=== PATIENT | female | born 1950 | race Two or more races ===

== ENCOUNTER 2020-09-17 08:28 | Day surgery (SDC) | payer OTHER ==
[~2020-09-17 08:28] MED LIST: ATACAND HCT 321 EACH PO; CARDURA1 MG PO; CLONAZEPAM0.5 MG PO; METFORMIN HCL500 M3 PO; ZOLOFT25 MG PO
[2020-09-17] MEDS ORDERED: PERCOCET 5-3251 EACH PO (12:52)
== END 2020-09-17 16:20 | disposition home or self-care (01) ==
LOC: CIR.AMB 08:28
PROVIDERS: ATTEND Surgery
DX: D35.1 Benign neoplasm of parathyroid gland (principal); Z20.828 Contact with and (suspected) exposure to other viral communicable diseases